=== PATIENT | female | born 2000 | race Caucasian/White ===

== ENCOUNTER 2025-06-06 05:28 | Inpatient (IN) ==
[2025-06-06] MEDS ORDERED: LIDOCAINE 1% LOCAL 20 ML VIAL INFIL PRN (05:45)
[2025-06-06] MEDS ORDERED: OXYTOCIN 30 UNITS/NSS 30 UNITS/500 ML BAG IV PRN (05:45)
--- NOTE | 2025-06-06 05:48 | History & Physical Report ---
Date of Service June 06, 2025 Assessment & Plan (1) Supervision of normal first : Plan: Admit to L&D for labor. EFM/toco. Labs. IV. OK for epidural if she desires. History of Present Illness Chief Complaint: contractions Primary Care Provider: YASMEEN Camp 25yo @ 40 04/25, came to L&D with reg ctx. Gush of fluid on the way in the door. Allergies Allergy/AdvReac Type Severity Reaction Status Date / Time No Known Allergies Allergy Verified 06/05/25 14:13 Home Medications Medication Instructions Recorded Confirmed Type 21-iron fu-folic acid PO 10/27/24 06/05/25 History [ Complete] Patient History Medical History Varicella vaccination Scoliosis Ovarian cyst Depression Surgical History [place] teeth removed Family History Grandfather (Paternal) Breast cancer Diabetes Grandmother (Maternal) Hypothyroidism Mother No problems noted. Father No problems noted. 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: No marital status: Single marital status details: amanda Cartagena (25) [phone] Current Living Situation: Significant Other Current Living Situation Comment: lives with spouse, dog, cats-fob changing litter current occupational status: employed 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 Feels Safe at Home: Yes Childhood Exposure to Second-Hand Smoke: Yes Diet: regular caffeine: Yes during the past year weight has: remained stable Dental Care, Regularly: Yes Physical Activity Frequency: Daily Seatbelt Use: always Sunscreen Use: Yes Assistive Devices: Contacts and Glasses Review of Systems All systems reviewed & are unremarkable except as noted in HPI & below Physical Exam Physical Exam: FHT Cat 1 [place] Q 2-4 SVE 4/100/-2 Constitutional: WD/WN, vitals as above Respiratory: normal respiratory effort, lungs clear to auscultation no respiratory distress Cardiovascular: Rate/Rhythm: regular rate and regular rhythm Gastrointestinal (Abdomen): Inspection/Auscultation: abdomen normal to inspection Percussion/Palpation: abdomen soft; abdomen nontender Gravid. No s/s chorio or abruption. Skin: no rashes, warm and dry Psychiatric: A+Ox3, euthymic affect Results & Data Vital Signs (Past 12 Hours) Vital Signs Pulse BP 06/06/25 05:33 86 136/82 Coding Level of Care Code None Diagnoses Supervision of normal first Z34.00
[2025-06-06 06:11] LABS: Hematocrit (blood only) 38.1 % (37.0-47.0); Hemoglobin 13.3 g/dl (12.0-16.0); Mean Corpuscular Hemoglobin 30.0 pg (25.0-34.0); Mean Corpuscular Volume 85.8 fL (80.0-100.0); Platelet Count 213 K/uL (130-400); RDW Standard Deviation 41.2 fL (36.4-46.3); Red Blood Count 4.44 M/uL (4.20-5.40); White Blood Count 9.99 K/ul (4.8-10.8)
[2025-06-06] MEDS: LACTATED RINGER'S 1,000 ML IV PRN (06:15)
--- NOTE | 2025-06-06 06:27 | Anesthesiology Consultation ---
Date of Service June 06, 2025 Assessment & Plan (1) Encounter for pre-operative examination: Chart Review Chart Review: Acceptable Risk for Labor Epidural History Height/Weight Height: 5 ft 5 in Weight: 6.35 kg Allergies Allergy/AdvReac Type Severity Reaction Status Date / Time No Known Allergies Allergy Verified 06/05/25 14:13 Medications Home Medications Medication Instructions Recorded Confirmed Last Taken 21-iron fu-folic acid PO 10/27/24 06/05/25 Unknown [ Complete] Past Medical History Medical History Varicella vaccination Scoliosis Ovarian cyst Depression Past Family History Family History Grandfather (Paternal) Breast cancer Diabetes Grandmother (Maternal) Hypothyroidism Mother No problems noted. Father , MVA No problems noted. Denies family history of Ovarian cancer Prostate cancer Myocardial infarction Colorectal cancer Past Surgical History Surgical History [place] teeth removed Social History Smoking Status: Never smoker Do You Dip or Chew Tobacco: No Hx Alcohol Use: No Hx Substance Use: No Physical Exam Vital Signs Last Vital Signs Pulse 86 06/06/25 05:33 Resp 18 06/06/25 05:43 BP 136/82 06/06/25 05:33 Testing Laboratory Results 06/06/25 05:53
[2025-06-06] MEDS: LIDOCAINE 2%/EPINEPHRINE 1:200,000 20 ML PF EPI STA (06:48)
[2025-06-06] MEDS: BUPIVACAINE 0.25% PF 30 ML VIAL EPI STA (06:48)
[2025-06-06] MEDS: fentANYL 2 MCG/ML BUPIVacaine 0.125%-NSS 100ML BAG EPI PRN (06:48)
[2025-06-06] MEDS ORDERED: ONDANSETRON INJ 2 MG/ML 2 ML VIAL IV PRN ×2 (06:50→15:46)
[2025-06-06] MEDS ORDERED: NALOXONE HCL 1 MG in SODIUM CHLORIDE 0.9% 1,000 ML IV PRN ×2 (06:50→15:46)
[2025-06-06] MEDS ORDERED: NALOXONE HCL 0.4 MG/1 ML VIAL/CARP IV PRN ×2 (06:50→15:46)
[2025-06-06] MEDS ORDERED: ROPIVACAINE 0.5% PF 5 MG/ML 20 ML VIAL EPI PRN (06:50)
[2025-06-06] MEDS ORDERED: SODIUM CHLORIDE 0.9% PF INJ 10 ML VIAL EPI PRN (06:50)
[2025-06-06] MEDS ORDERED: LIDOCAINE 2% MPF LOCAL 5 ML VIAL EPI PRN (06:50)
[2025-06-06] MEDS ORDERED: BUPIVACAINE 0.25% PF 30 ML VIAL EPI PRN (06:50)
[2025-06-06] MEDS: SODIUM CHLORIDE 0.9% PF INJ 10 ML VIAL EPI STA (07:33)
--- NOTE | 2025-06-06 11:33 | Labor Progress Brief Note ---
Date of Service June 06, 2025 Subjective comfortable, started pushing at +1 and deep variables with pushing in a late presentation Assessment & Plan (1) Normal labor: Plan attempted some pushing and baby did not tolerate well. recovers nicely good variability and spon accels. Will attempt laboring down to see if can get a little lower without maternal effort. If start pushing again and does not tolerate, will need to proceed with c/s. Fetus has recovered and reasssuring. Admission and Anticipated Discharge Date Admission Date: June 06, 2025 Physical Exam Physical Exam: cx--c/c/+1 toco--q2min efm--150s with mod variablity, accels present, late in association variable decels Results & Data Vital Signs (Past 12 Hours) Vital Signs Temp Pulse Resp BP Pulse Ox 06/06/25 11:28 100 06/06/25 11:28 98 H 06/06/25 11:23 98 06/06/25 11:23 130 H 06/06/25 11:23 69 L 06/06/25 11:23 100 H 06/06/25 11:18 100 06/06/25 11:18 102 H 06/06/25 11:15 93 06/06/25 11:15 117 H 06/06/25 11:13 97 06/06/25 11:13 102 H 06/06/25 11:12 103 H 06/06/25 11:12 127/79 06/06/25 11:09 91 06/06/25 11:09 86 06/06/25 11:08 100 06/06/25 11:08 67 06/06/25 11:03 100 06/06/25 11:03 73 06/06/25 11:01 92 06/06/25 11:01 81 06/06/25 10:58 98 06/06/25 10:58 72 06/06/25 10:56 18 06/06/25 10:56 37.3 C 18 06/06/25 10:56 62 06/06/25 10:56 106/65 06/06/25 10:53 100 06/06/25 10:53 67 06/06/25 10:52 20 06/06/25 10:52 37.3 C 20 06/06/25 10:48 100 06/06/25 10:48 67 06/06/25 10:43 100 06/06/25 10:43 60 06/06/25 10:43 105/58 L 06/06/25 10:38 100 06/06/25 10:38 72 06/06/25 10:33 100 06/06/25 10:33 61 06/06/25 10:28 100 06/06/25 10:28 58 L 06/06/25 10:28 67 06/06/25 10:28 105/56 L 06/06/25 10:23 100 06/06/25 10:23 63 06/06/25 10:18 97 06/06/25 10:18 88 06/06/25 10:17 93 06/06/25 10:17 78 06/06/25 10:13 100 06/06/25 10:13 63 06/06/25 10:12 66 06/06/25 10:12 103/56 L 06/06/25 10:08 100 06/06/25 10:08 74 06/06/25 10:06 90 06/06/25 10:06 71 06/06/25 10:03 100 06/06/25 10:03 69 06/06/25 10:01 68 06/06/25 10:01 116/60 06/06/25 09:58 100 06/06/25 09:58 75 06/06/25 09:53 94 06/06/25 09:53 83 06/06/25 09:53 90 06/06/25 09:53 83 06/06/25 09:48 100 06/06/25 09:48 81 06/06/25 09:45 87 L 06/06/25 09:45 78 06/06/25 09:43 100 06/06/25 09:43 78 06/06/25 09:38 98 06/06/25 09:38 78 06/06/25 09:33 98 06/06/25 09:33 73 06/06/25 09:30 93 06/06/25 09:30 74 06/06/25 09:28 100 06/06/25 09:28 71 06/06/25 09:28 110/57 L 06/06/25 09:23 99 06/06/25 09:23 79 06/06/25 09:21 93 06/06/25 09:21 88 06/06/25 09:18 96 06/06/25 09:18 93 H 06/06/25 09:13 100 06/06/25 09:13 93 H 06/06/25 09:09 88 L 06/06/25 09:09 85 06/06/25 09:08 100 06/06/25 09:08 84 06/06/25 09:03 100 06/06/25 09:03 104 H 06/06/25 08:58 100 06/06/25 08:58 72 06/06/25 08:57 70 06/06/25 08:57 112/65 06/06/25 08:53 100 06/06/25 08:53 69 06/06/25 08:48 100 06/06/25 08:48 80 06/06/25 08:43 100 06/06/25 08:43 75 06/06/25 08:42 65 06/06/25 08:42 123/69 06/06/25 08:38 100 06/06/25 08:38 63 06/06/25 08:33 100 06/06/25 08:33 62 06/06/25 08:28 100 06/06/25 08:28 66 06/06/25 08:23 100 06/06/25 08:23 74 06/06/25 08:18 97 06/06/25 08:18 90 06/06/25 08:13 100 06/06/25 08:13 71 06/06/25 08:13 69 06/06/25 08:13 149/58 H 06/06/25 08:08 99 06/06/25 08:08 73 06/06/25 08:07 83 06/06/25 08:07 113/92 06/06/25 08:05 92 06/06/25 08:05 89 06/06/25 08:03 97 06/06/25 08:03 69 06/06/25 07:59 90 06/06/25 07:59 81 06/06/25 07:58 100 06/06/25 07:58 75 06/06/25 07:53 100 06/06/25 07:53 61 06/06/25 07:48 100 06/06/25 07:48 58 L 06/06/25 07:44 18 06/06/25 07:44 18 06/06/25 07:44 62 06/06/25 07:44 112/62 06/06/25 07:43 100 06/06/25 07:43 69 06/06/25 07:39 91 06/06/25 07:39 88 06/06/25 07:38 100 06/06/25 07:38 88 06/06/25 07:33 100 06/06/25 07:33 71 06/06/25 07:31 92 06/06/25 07:31 75 06/06/25 07:28 100 06/06/25 07:28 60 06/06/25 07:26 18 06/06/25 07:26 18 06/06/25 07:26 66 06/06/25 07:26 133/80 06/06/25 07:24 94 06/06/25 07:24 69 06/06/25 07:24 120/84 06/06/25 07:23 98 06/06/25 07:23 72 06/06/25 07:22 62 06/06/25 07:22 137/84 06/06/25 07:20 56 L 06/06/25 07:20 126/61 06/06/25 07:18 100 06/06/25 07:18 60 06/06/25 07:18 117/61 06/06/25 07:17 71 06/06/25 07:17 125/62 06/06/25 07:17 93 06/06/25 07:17 79 06/06/25 07:13 100 06/06/25 07:13 69 06/06/25 07:13 61 06/06/25 07:13 121/75 06/06/25 07:10 72 06/06/25 07:10 107/66 06/06/25 07:08 100 06/06/25 07:08 64 06/06/25 07:08 110/64 06/06/25 07:07 69 06/06/25 07:07 122/71 06/06/25 07:04 18 06/06/25 07:04 18 06/06/25 07:04 82 06/06/25 07:04 104/69 06/06/25 07:03 99 06/06/25 07:03 81 06/06/25 07:02 74 06/06/25 07:02 120/75 06/06/25 07:00 18 06/06/25 07:00 18 06/06/25 07:00 73 06/06/25 07:00 113/61 06/06/25 06:58 99 06/06/25 06:58 79 06/06/25 06:58 66 06/06/25 06:58 115/56 L 06/06/25 06:55 18 06/06/25 06:55 18 06/06/25 06:54 92 H 06/06/25 06:54 112/72 06/06/25 06:53 100 06/06/25 06:53 75 06/06/25 06:52 76 06/06/25 06:52 115/65 06/06/25 06:50 18 06/06/25 06:50 18 06/06/25 06:50 68 06/06/25 06:50 120/69 06/06/25 06:48 99 06/06/25 06:48 76 06/06/25 06:48 65 06/06/25 06:48 123/65 06/06/25 06:47 18 06/06/25 06:47 36.8 C 18 06/06/25 06:45 67 06/06/25 06:45 122/57 L 06/06/25 06:43 98 06/06/25 06:43 70 06/06/25 06:38 99 06/06/25 06:38 84 06/06/25 06:33 100 06/06/25 06:33 87 06/06/25 05:43 18 06/06/25 05:33 86 136/82 Coding Level of Care Code None Diagnoses Normal labor O80; Z37.9
[2025-06-06] MEDS ORDERED: ACETAMINOPHEN SUSP 160 MG/5 ML BTL PO STA (11:44)
[2025-06-06] MEDS: ACETAMINOPHEN 500 MG TAB ONE (11:54)
[2025-06-06] MEDS ORDERED: OXYTOCIN 10 UNITS/ML VIAL ONE ×3 (14:58→15:59)
[2025-06-06] MEDS ORDERED: DEXAMETHASONE SOD INJ 4 MG/ML VIAL ONE (14:58)
[2025-06-06] MEDS ORDERED: ONDANSETRON INJ 2 MG/ML 2 ML VIAL ONE (14:58)
[2025-06-06] MEDS ORDERED: METOCLOPRAMIDE HCL INJ 5 MG/ML 2 ML VIAL ONE (14:58)
[2025-06-06] MEDS ORDERED: MoRPHine SULFATE PF 1 MG/ML 10 ML AMP/VIAL ONE (15:01)
--- NOTE | 2025-06-06 15:06 | Communication Note ---
Date of Service: June 06, 2025 Patient has been pushing with excellent effort. Has been pushing in multiple positions. Fht have been tachy in the 170s with deepening variables with slower return to baseline. Has manintained good variability, even marked at times. Have finally been able to determine rop. Discussed lack of descent over the last hour. Discussed the possiblitiy of attempting a vacuum--concern about caput, is +2 barely. Willing to try to get lower vs. progressing with c/s. The risks of surgery were discussed with the patient including the risks of anesthesia, bleeding requiring transfusion, infection, poor wound healing, urinary retention, damage to surrounding structures including bowels, bladder, vessels, nerves and ureters that may require further surgery, hospitalization or intervention. The other risks of any surgery were discussed including heart attack, blood clots, stroke or , injury to baby. Has a very good working epidural. After discussion, they have decided to move forward with c/s. Consent reviewed an signed.
[2025-06-06] MEDS ORDERED: AZITHROMYCIN 500 MG/255 ML BAG IV SCH (15:15)
[2025-06-06] MEDS ORDERED: ACETAMINOPHEN 500 MG TAB PO SCH (15:15)
[2025-06-06] MEDS ORDERED: SODIUM CHLORIDE 0.9% PF INJ 10 ML VIAL ONE (15:35)
[2025-06-06] MEDS ORDERED: LACTATED RINGER'S 500 ML IV PRN (15:46)
[2025-06-06] MEDS ORDERED: PROMETHAZINE 6.25 MG/50.25 ML BAG IV PRN (15:46)
[2025-06-06] MEDS ORDERED: MoRPHine SULFATE 2 MG/ML CARP IV PRN (15:46)
[2025-06-06] MEDS ORDERED: NALOXONE HCL 0.08 MG in SYRINGE 1.8 ML IV PRN (15:46)
[2025-06-06] MEDS ORDERED: diphenhydrAMINE 50 MG/ML VIAL IV PRN (15:46)
[2025-06-06] MEDS ORDERED: NALBUPHINE HCL INJ 10 MG/ML AMP IV PRN (15:46)
[2025-06-06] MEDS ORDERED: PHENYLEPHRINE 100MCG/ML 5ML SYR ONE (16:00)
[2025-06-06] MEDS ORDERED: ePHEDrine sulfate 50 MG/5 ML SYR ONE (16:00)
[2025-06-06] MEDS ORDERED: DC INTRASPINAL MORPHINE SCH (16:00)
[2025-06-06] MEDS ORDERED: NO NARCOTICS OR SEDATIVES SCH (16:00)
[2025-06-06] MEDS ORDERED: LACTATED RINGER'S 1,000 ML IV SCH (16:15)
--- NOTE | 2025-06-06 16:17 | Operative Report ---
PG Post Operative Report Pre & Post Diagnosis Operation Date: 06/06/25 15:10 <No data on this case meets the specified criteria> preop--iup at 40 weeks FTD intolerance to pushing OP Postop dx--same I identified the patient and participated in the time-out.: Yes Procedure Operation Date: 06/06/25 15:10 Actual Procedures p primary low transverse Section in for delivery of live female child at 1537(Not Applicable) - Radha Crockett MD, FACOG Surgeon Radha Crockett MD, FACOG Millinery Salesperson Betsy Pearl RN Estimated Blood Loss 362 Findings Consistent with Post-Op Diagnosis viable female infant in OP presentation, wedged into pelvis with large caput. Uterus, tubes and ovaries appeared normal bilaterally. The left ovary appeared slightly enlarged, but there were no obvious cysts or masses noted. Fluids ivf--1000cc uop--100cc Specimens none Drains armas Anesthesia Type Labor Epidural Complications none Disposition Accompanied Patient To Recovery: No Disposition: L&D Indications 25 yo wf who presented in spontaneous labor and progressed spontaneously. She pushed with good effort for about two hours. The fetus was tolerated the pushing well in the beginning but eventually became tachycardic with deeper variables with pushing that then had delayed return to a tachycardic baseline and had some concern about late component. Variability remained excellent, even at times marked. Determied baby was OP. Consideration of trial of vacuum but they preferred to proceed with a primary c/s. Description of Procedure The patient was taken to the operating room where she was identified verbally and by bracelet. She was placed on the operating table where her epidural was dosed by anesthesia. She was then placed in the supine position with a leftward tilt. A Armas catheter was placed sterilely. the patient was prepped and draped in a normal standard fashion. the anesthetic was tested and found to be adequate. A time-out was held, identifying correct patient, procedure, positioning and preoperative antibiotics. There were no concerns. A Pfannenstiel skin incision was made with a knife and taken down to the underlying layer of fascia with the knife and Bovie electrocautery. Bleeding was attended to with the Bovie. The fascia was incised in the midline with the knife and taken out laterally with scissors. The superior edge of the fascial incision was grasped, elevated and the underlying layer of rectus muscle was taken off bluntly and with scissors. In a similar fashion, the inferior edge of the fascial incision was grasped, elevated and the underlying layer of rectus muscle was taken off bluntly and with scissors. The muscles were bluntly in the midline. The peritoneum was entered bluntly. The incision was then stretched. The bladder blade was placed. The vesicouterine peritoneum was identified, entered with scissors and taken out laterally with scissors. The bladder flap was created digitally A hysterotomy incision was scored with a knife and the incision was stretched superiorly and inferiorly with the meat press operator's fingers. Fluid was clear. Baby was looking up through the incision in rop presentation. The operators hand was placed into the incision and the head was delivered atraumatically. No nuchal cord. The nose and mouth were bulb suctioned. the rest of the infant was then delivered without difficulty. The nose and mouth were again bulb suctioned. The cord was clamped and cut and the infant was then handed off to the awaiting assistant engineer for drying and attention. Cord blood and segment were obtained. Apgars 7/9. The placenta was Manually extracted. The uterus was exteriorized and cleared of all clot and debris with moistened laparotomy sponges. The hysterotomy incision was repaired in two layers, the first in a running locked layer, the second in an imbricating layer. Hemostasis was noted to be good. Posterior cul-de-sac was irrigated and cleared of all clot and debris. The hysterotomy incision was again inspected and found to be hemostatic. the uterus was reinteriorized. Hysterotomy incision was again inspected and found to be hemostatic. The fascia was then reapproximated with 0 Vicryl starting at the edges and meeting in the midline. The subcuticular tissues were copiously irrigated and bleeding was attended to with cautery. The skin was then closed with 4-0 Vicryl in a subcuticular fashion. All sponge , lap and needle counts were correct x2. the patient tolerated the procedure well and was taken to the recovery room in stable condition. I attest to the content of the Intraoperative Record and any orders documented therein. Any exceptions are noted below.
[2025-06-06] MEDS ORDERED: SENNA 8.6 MG TAB PO PRN (16:19)
[2025-06-06] MEDS ORDERED: HYDROCORTISONE ACETATE 25 MG SUPP PR PRN (16:19)
[2025-06-06] MEDS ORDERED: BENZOCAINE 20% SPRY 85 APPLN/85 GM CAN EXT PRN (16:19)
[2025-06-06] MEDS ORDERED: CALCIUM CARBONATE 500 MG CHEWABLE TAB PO PRN (16:19)
[2025-06-06] MEDS ORDERED: MAGNESIUM HYDROXIDE SUSP 30 ML UDC PO PRN (16:19)
[2025-06-06] MEDS: KETOROLAC 30 MG/ML VIAL IV SCH (17:03)
[2025-06-06] MEDS: CITRIC ACID/SODIUM CITRATE 15 ML UDC PO SCH (17:23)
[2025-06-06] MEDS: MoRPHine SULFATE PF 1 MG/ML 10 ML AMP/VIAL EPI ONE (17:23)
[2025-06-06] MEDS: SIMETHICONE 80 MG CHEW PO SCH (17:24)
[2025-06-06] MEDS: DIPHTHER/TETAN/PERTUS Vaccine (Tdap, Adol/Adult) 0.5mL IM ONE (17:24)
[2025-06-06] MEDS: LACTATED RINGER'S 1,000 ML IV SCH (17:27)
[2025-06-06] MEDS: SODIUM CHLORIDE 0.9% 1,000 ML IV SCH (17:27)
[2025-06-06] MEDS: CITRIC ACID/SODIUM CITRATE 15 ML UDC ONE (17:28)
--- NOTE | 2025-06-06 17:36 | Anesthesia Procedure Note ---
Date of Service June 06, 2025 Anesthesia Post Epidural Note Vital Signs Vital Signs: Temp Pulse Resp BP Pulse Ox 36.9 C 86 20 121/59 L 97 06/06/25 17:15 06/06/25 17:30 06/06/25 17:15 06/06/25 17:26 06/06/25 17:30 Pain Intensity Bilateral Abdomen: Pain Intensity: 3 Notes Mental Status: alert / awake / arousable and participated in evaluation Nausea / Vomiting: adequately controlled Pain: adequately controlled Airway Patency, RR, SpO2: stable & adequate BP & HR: stable & adequate Hydration State: stable & adequate Neuraxial Anesthesia: was administered and sensory block is resolving Anesthetic Complications: no major complications apparent Epidural: Removed without complications and With tip intact
--- NOTE | 2025-06-06 17:36 | Anesthesiology Progress Note ---
Date of Service June 06, 2025 Anesthesia Post Procedure Vital Signs Vital Signs: Temp Pulse Resp BP Pulse Ox 06/06/25 17:30 97 06/06/25 17:30 86 06/06/25 17:26 105 H 06/06/25 17:26 121/59 L 06/06/25 17:21 82 L 06/06/25 17:21 75 06/06/25 17:17 100 06/06/25 17:17 73 06/06/25 17:16 93 H 06/06/25 17:16 113/60 06/06/25 17:15 36.9 C 20 06/06/25 17:12 99 06/06/25 17:12 82 06/06/25 17:07 99 06/06/25 17:07 94 H 06/06/25 17:06 95 H 06/06/25 17:06 112/59 L 06/06/25 17:05 20 06/06/25 17:02 99 06/06/25 17:02 113 H 06/06/25 16:57 98 06/06/25 16:57 82 06/06/25 16:56 90 06/06/25 16:56 124/56 L 06/06/25 16:56 90 06/06/25 16:56 90 06/06/25 16:55 16 06/06/25 16:52 99 06/06/25 16:52 70 06/06/25 16:47 99 06/06/25 16:47 79 06/06/25 16:45 16 06/06/25 16:42 96 06/06/25 16:42 78 06/06/25 16:40 83 06/06/25 16:40 133/75 06/06/25 16:38 94 06/06/25 16:38 80 06/06/25 16:37 97 06/06/25 16:37 80 06/06/25 16:35 20 06/06/25 16:33 93 06/06/25 16:33 86 06/06/25 16:32 91 06/06/25 16:32 94 H 06/06/25 16:30 74 06/06/25 16:30 86/50 L 06/06/25 16:29 77 06/06/25 16:29 92/49 L 06/06/25 16:28 90 06/06/25 16:28 96 H 06/06/25 16:27 98 06/06/25 16:27 94 H 06/06/25 16:25 20 06/06/25 16:22 97 06/06/25 16:22 89 06/06/25 16:19 93 06/06/25 16:19 84 06/06/25 16:17 92 06/06/25 16:17 89 06/06/25 16:15 37 C 20 06/06/25 16:15 83 06/06/25 16:15 102/55 L 06/06/25 16:13 94 06/06/25 16:13 87 06/06/25 16:12 95 06/06/25 16:12 94 H 06/06/25 15:19 66 L 06/06/25 15:19 111 H 06/06/25 15:15 90 06/06/25 15:15 79 06/06/25 15:14 93 06/06/25 15:14 79 06/06/25 15:09 99 06/06/25 15:09 88 06/06/25 15:07 92 06/06/25 15:07 102 H 06/06/25 15:06 20 06/06/25 15:06 37.1 C 20 06/06/25 15:06 92 H 06/06/25 15:06 118/69 06/06/25 15:04 82 L 06/06/25 15:04 82 06/06/25 15:00 90 06/06/25 15:00 81 06/06/25 14:59 99 06/06/25 14:59 87 06/06/25 14:54 94 06/06/25 14:54 103 H 06/06/25 14:49 99 06/06/25 14:49 92 H 06/06/25 14:44 98 06/06/25 14:44 148 H 06/06/25 14:39 99 06/06/25 14:39 92 H 06/06/25 14:38 94 06/06/25 14:38 107 H 06/06/25 14:34 99 06/06/25 14:34 112 H 06/06/25 14:33 93 06/06/25 14:33 118 H 06/06/25 14:33 22 06/06/25 14:33 22 06/06/25 14:29 85 L 06/06/25 14:29 107 H 06/06/25 14:26 90 06/06/25 14:26 114 H 06/06/25 14:24 100 06/06/25 14:24 95 H 06/06/25 14:21 85 L 06/06/25 14:21 74 06/06/25 14:19 100 06/06/25 14:19 70 06/06/25 14:15 91 06/06/25 14:15 73 06/06/25 14:14 96 06/06/25 14:14 77 06/06/25 14:09 94 06/06/25 14:09 80 06/06/25 14:08 91 06/06/25 14:08 78 06/06/25 14:05 65 06/06/25 14:05 125/59 L 06/06/25 14:04 93 06/06/25 14:04 105 H 06/06/25 14:03 93 06/06/25 14:03 93 H 06/06/25 14:00 20 06/06/25 14:00 20 06/06/25 13:59 84 L 06/06/25 13:59 75 06/06/25 13:57 94 06/06/25 13:57 87 06/06/25 13:54 93 06/06/25 13:54 96 H 06/06/25 13:51 94 06/06/25 13:51 90 06/06/25 13:51 114/57 L 06/06/25 13:49 98 06/06/25 13:49 97 H 06/06/25 13:44 75 L 06/06/25 13:44 143 H 06/06/25 13:39 97 06/06/25 13:39 97 H 06/06/25 13:39 94 06/06/25 13:39 93 H 06/06/25 13:37 103 H 06/06/25 13:37 116/70 06/06/25 13:37 20 06/06/25 13:37 20 06/06/25 13:34 89 L 06/06/25 13:34 102 H 06/06/25 13:32 94 06/06/25 13:32 100 H 06/06/25 13:29 77 L 06/06/25 13:29 135 H 06/06/25 13:26 83 L 06/06/25 13:26 97 H 06/06/25 13:24 89 L 06/06/25 13:24 82 06/06/25 13:21 92 06/06/25 13:21 84 06/06/25 13:19 97 06/06/25 13:19 84 06/06/25 13:15 90 06/06/25 13:15 64 06/06/25 13:14 99 06/06/25 13:14 67 06/06/25 13:09 94 06/06/25 13:09 75 06/06/25 13:07 113 H 06/06/25 13:07 128/75 06/06/25 13:06 86 L 06/06/25 13:06 80 06/06/25 13:04 100 06/06/25 13:04 70 06/06/25 12:59 96 06/06/25 12:59 75 06/06/25 12:54 77 L 06/06/25 12:54 93 H 06/06/25 12:50 86 L 06/06/25 12:50 95 H 06/06/25 12:49 97 06/06/25 12:49 100 H 06/06/25 12:47 20 06/06/25 12:47 37.4 C 20 06/06/25 12:44 100 06/06/25 12:44 77 06/06/25 12:41 93 06/06/25 12:41 82 06/06/25 12:39 99 06/06/25 12:39 78 06/06/25 12:36 92 06/06/25 12:36 99 H 06/06/25 12:34 100 06/06/25 12:34 76 06/06/25 12:29 94 06/06/25 12:29 64 06/06/25 12:28 95 06/06/25 12:28 65 06/06/25 12:24 90 06/06/25 12:24 90 06/06/25 12:23 100 06/06/25 12:23 87 06/06/25 12:18 100 06/06/25 12:18 66 06/06/25 12:18 92 06/06/25 12:18 74 06/06/25 12:13 97 06/06/25 12:13 73 06/06/25 12:12 89 L 06/06/25 12:12 74 06/06/25 12:08 86 L 06/06/25 12:08 79 06/06/25 12:06 91 06/06/25 12:06 92 H 06/06/25 12:06 129/78 06/06/25 12:03 100 06/06/25 12:03 73 06/06/25 12:01 92 06/06/25 12:01 79 06/06/25 11:58 85 L 06/06/25 11:58 82 06/06/25 11:54 91 06/06/25 11:54 86 06/06/25 11:53 99 06/06/25 11:53 86 06/06/25 11:48 100 06/06/25 11:48 74 06/06/25 11:46 91 06/06/25 11:46 83 06/06/25 11:43 98 06/06/25 11:43 78 06/06/25 11:41 93 06/06/25 11:41 74 06/06/25 11:38 98 06/06/25 11:38 91 H 06/06/25 11:35 91 06/06/25 11:35 85 06/06/25 11:35 65 06/06/25 11:35 101/63 06/06/25 11:33 99 06/06/25 11:33 83 06/06/25 11:28 100 06/06/25 11:28 98 H 06/06/25 11:23 98 06/06/25 11:23 130 H 06/06/25 11:23 69 L 06/06/25 11:23 100 H 06/06/25 11:18 100 06/06/25 11:18 102 H 06/06/25 11:15 93 06/06/25 11:15 117 H 06/06/25 11:13 97 06/06/25 11:13 102 H 06/06/25 11:12 103 H 06/06/25 11:12 127/79 06/06/25 11:09 91 06/06/25 11:09 86 06/06/25 11:08 100 06/06/25 11:08 67 06/06/25 11:03 100 06/06/25 11:03 73 06/06/25 11:01 92 06/06/25 11:01 81 06/06/25 10:58 98 06/06/25 10:58 72 06/06/25 10:56 18 06/06/25 10:56 37.3 C 18 06/06/25 10:56 62 06/06/25 10:56 106/65 06/06/25 10:53 100 06/06/25 10:53 67 06/06/25 10:52 20 06/06/25 10:52 37.3 C 20 06/06/25 10:48 100 06/06/25 10:48 67 06/06/25 10:43 100 06/06/25 10:43 60 06/06/25 10:43 105/58 L 06/06/25 10:38 100 06/06/25 10:38 72 06/06/25 10:33 100 06/06/25 10:33 61 06/06/25 10:28 100 06/06/25 10:28 58 L 06/06/25 10:28 67 06/06/25 10:28 105/56 L 06/06/25 10:23 100 06/06/25 10:23 63 06/06/25 10:18 97 06/06/25 10:18 88 06/06/25 10:17 93 06/06/25 10:17 78 06/06/25 10:13 100 06/06/25 10:13 63 06/06/25 10:12 66 06/06/25 10:12 103/56 L 06/06/25 10:08 100 06/06/25 10:08 74 06/06/25 10:06 90 06/06/25 10:06 71 06/06/25 10:03 100 06/06/25 10:03 69 06/06/25 10:01 68 06/06/25 10:01 116/60 06/06/25 09:58 100 06/06/25 09:58 75 06/06/25 09:53 94 06/06/25 09:53 83 06/06/25 09:53 90 06/06/25 09:53 83 06/06/25 09:48 100 06/06/25 09:48 81 06/06/25 09:45 87 L 06/06/25 09:45 78 06/06/25 09:43 100 06/06/25 09:43 78 06/06/25 09:38 98 06/06/25 09:38 78 06/06/25 09:33 98 06/06/25 09:33 73 06/06/25 09:30 93 06/06/25 09:30 74 06/06/25 09:28 100 06/06/25 09:28 71 06/06/25 09:28 110/57 L 06/06/25 09:23 99 06/06/25 09:23 79 06/06/25 09:21 93 06/06/25 09:21 88 06/06/25 09:18 96 06/06/25 09:18 93 H 06/06/25 09:13 100 06/06/25 09:13 93 H 06/06/25 09:09 88 L 06/06/25 09:09 85 06/06/25 09:08 100 06/06/25 09:08 84 06/06/25 09:03 100 06/06/25 09:03 104 H 06/06/25 08:58 100 06/06/25 08:58 72 06/06/25 08:57 70 06/06/25 08:57 112/65 06/06/25 08:53 100 06/06/25 08:53 69 06/06/25 08:48 100 06/06/25 08:48 80 06/06/25 08:43 100 06/06/25 08:43 75 06/06/25 08:42 65 06/06/25 08:42 123/69 06/06/25 08:38 100 06/06/25 08:38 63 06/06/25 08:33 100 06/06/25 08:33 62 06/06/25 08:28 100 06/06/25 08:28 66 06/06/25 08:23 100 06/06/25 08:23 74 06/06/25 08:18 97 06/06/25 08:18 90 06/06/25 08:13 100 06/06/25 08:13 71 06/06/25 08:13 69 06/06/25 08:13 149/58 H 06/06/25 08:08 99 06/06/25 08:08 73 06/06/25 08:07 83 06/06/25 08:07 113/92 06/06/25 08:05 92 06/06/25 08:05 89 06/06/25 08:03 97 06/06/25 08:03 69 06/06/25 07:59 90 06/06/25 07:59 81 06/06/25 07:58 100 06/06/25 07:58 75 06/06/25 07:53 100 06/06/25 07:53 61 06/06/25 07:48 100 06/06/25 07:48 58 L 06/06/25 07:44 18 06/06/25 07:44 18 06/06/25 07:44 62 06/06/25 07:44 112/62 06/06/25 07:43 100 06/06/25 07:43 69 06/06/25 07:39 91 06/06/25 07:39 88 06/06/25 07:38 100 06/06/25 07:38 88 06/06/25 07:33 100 06/06/25 07:33 71 06/06/25 07:31 92 06/06/25 07:31 75 06/06/25 07:28 100 06/06/25 07:28 60 06/06/25 07:26 18 06/06/25 07:26 18 06/06/25 07:26 66 06/06/25 07:26 133/80 06/06/25 07:24 94 06/06/25 07:24 69 06/06/25 07:24 120/84 06/06/25 07:23 98 06/06/25 07:23 72 06/06/25 07:22 62 06/06/25 07:22 137/84 06/06/25 07:20 56 L 06/06/25 07:20 126/61 06/06/25 07:18 100 06/06/25 07:18 60 06/06/25 07:18 117/61 06/06/25 07:17 71 06/06/25 07:17 125/62 06/06/25 07:17 93 06/06/25 07:17 79 06/06/25 07:13 100 06/06/25 07:13 69 06/06/25 07:13 61 06/06/25 07:13 121/75 06/06/25 07:10 72 06/06/25 07:10 107/66 06/06/25 07:08 100 06/06/25 07:08 64 06/06/25 07:08 110/64 06/06/25 07:07 69 06/06/25 07:07 122/71 06/06/25 07:04 18 06/06/25 07:04 18 06/06/25 07:04 82 06/06/25 07:04 104/69 06/06/25 07:03 99 06/06/25 07:03 81 06/06/25 07:02 74 06/06/25 07:02 120/75 06/06/25 07:00 18 06/06/25 07:00 18 06/06/25 07:00 73 06/06/25 07:00 113/61 06/06/25 06:58 99 06/06/25 06:58 79 06/06/25 06:58 66 06/06/25 06:58 115/56 L 06/06/25 06:55 18 06/06/25 06:55 18 06/06/25 06:54 92 H 06/06/25 06:54 112/72 06/06/25 06:53 100 06/06/25 06:53 75 06/06/25 06:52 76 06/06/25 06:52 115/65 06/06/25 06:50 18 06/06/25 06:50 18 06/06/25 06:50 68 06/06/25 06:50 120/69 06/06/25 06:48 99 06/06/25 06:48 76 06/06/25 06:48 65 06/06/25 06:48 123/65 06/06/25 06:47 18 06/06/25 06:47 36.8 C 18 06/06/25 06:45 67 06/06/25 06:45 122/57 L 06/06/25 06:43 98 06/06/25 06:43 70 06/06/25 06:38 99 06/06/25 06:38 84 06/06/25 06:33 100 06/06/25 06:33 87 06/06/25 05:43 18 06/06/25 05:33 86 136/82 Pain Intensity Bilateral Abdomen: Pain Intensity: 3 Transfer of Care Handoff Completed per policy Notes Mental Status: alert / awake / arousable Patient Amnestic to Procedure: Yes Nausea / Vomiting: adequately controlled Pain: adequately controlled Airway Patency, RR, SpO2: stable & adequate BP & HR: stable & adequate Hydration State: stable & adequate Anesthetic Complications: no major complications apparent
[2025-06-06] MEDS: DOCUSATE SODIUM 100 MG CAP PO SCH (21:00)
[2025-06-06] MEDS ORDERED: Nursing to Pharmacy Communication SCH (22:30)
[2025-06-06] MEDS: ACETAMINOPHEN 325 MG TAB PO SCH (23:30)
[2025-06-06] MEDS: OXYTOCIN 20 UNITS/LR 1,002 ML IV SCH (23:45)
[2025-06-07] MEDS ORDERED: Nursing to Pharmacy Communication SCH (06:00)
[2025-06-07] MEDS: IBUPROFEN 600 MG TAB PO SCH ×2 (06:04→11:09)
[2025-06-07 07:21] LABS: Hematocrit (blood only) 31.0 % (37.0-47.0); Hemoglobin 10.6 g/dl (12.0-16.0); Immature Granulocytes # (auto) 0.05 K/uL (0.01-0.20); Immature Granulocytes % (auto) 0.4 %; Mean Corpuscular Hemoglobin 30.0 pg (25.0-34.0); Mean Corpuscular Volume 87.8 fL (80.0-100.0); Platelet Count 162 K/uL (130-400); RDW Standard Deviation 43.8 fL (36.4-46.3); Red Blood Count 3.53 M/uL (4.20-5.40); White Blood Count 12.65 K/ul (4.8-10.8)
--- NOTE | 2025-06-07 07:24 | Obstetrical Progress Note ---
Date of Service June 07, 2025 Assessment & Plan (1) delivery delivered: (2) examination following delivery: Plan Overall doing well. Incision looks good. Plan routine care. Encouraged ambulation and pain med. Day #:: 1 Subjective Ambulation: limited ambulation Voiding: no voiding problems Passing Gas:: Yes Diet Tolerance:: regular diet Lochia:: Small Feeding Type:: breast feeding Patient lost IV access last night, switching to po regimen. Did discuss that if she has issues, may need IV replaced. Pain fairly well controlled Physical Exam Constitutional WD/WN, vitals as above Respiratory normal respiratory effort, lungs clear to auscultation Cardiovascular RRR, no murmur, no edema Extremities: no calf tenderness and no edema Gastrointestinal (Abdomen) soft, appropriately tender, nd ff/appro tender at u Some old exudate on dressing outlined. Incision c/d/i Psychiatric A+Ox3, euthymic affect Results & Data Vital Signs (Past 12 Hours) Vital Signs Temp Pulse Resp BP Pulse Ox O2 Del Method 06/07/25 05:00 16 100 06/07/25 05:00 37 C 72 16 106/69 100 Room Air 06/07/25 04:00 16 98 06/07/25 03:00 16 96 06/07/25 02:00 16 98 06/07/25 01:00 16 98 06/07/25 00:00 18 98 06/06/25 23:30 37.1 C 70 16 132/81 100 Room Air 06/06/25 23:00 16 98 06/06/25 22:00 16 98 06/06/25 21:00 16 98 06/06/25 19:40 18 99 06/06/25 19:40 37.2 C 72 18 130/79 99 Room Air
[2025-06-07] MEDS: FERROUS SULFATE 325 MG TAB PO SCH (08:54)
[2025-06-07] MEDS: PRENATAL VITAMIN 1 TAB PO SCH (08:55)
[2025-06-07] MEDS ORDERED: diphenhydrAMINE 50 MG/ML VIAL IV PRN (09:47)
[2025-06-07] MEDS ORDERED: HYDROmorphone INJ 0.5 MG/0.5 ML SYR IV PRN (09:47)
[2025-06-07] MEDS ORDERED: PROMETHAZINE 12.5 MG/50.5 ML BAG IV PRN (09:47)
[2025-06-07] MEDS ORDERED: ONDANSETRON INJ 2 MG/ML 2 ML VIAL IV PRN (09:47)
[2025-06-07] MEDS ORDERED: diphenhydrAMINE Capsule 25 MG CAP PO PRN (09:47)
[2025-06-07] MEDS ORDERED: KETOROLAC 30 MG/ML VIAL IV PRN (16:12)
[2025-06-07] MEDS: IBUPROFEN 600 MG TAB PO PRN (23:00)
[2025-06-08 06:13] LABS: Hematocrit (blood only) 33.3 % (37.0-47.0); Hemoglobin 11.0 g/dl (12.0-16.0)
--- NOTE | 2025-06-08 06:21 | Obstetrical Progress Note ---
Date of Service June 08, 2025 Assessment & Plan (1) examination following delivery: Plan Hedy Cross is a 25 y/o F post-op day 2 s/p Fells well today. Vital signs stable Continue post- care Encourage ambulation and Pain controlled with ibuprofen Hgb stable Discussed home discharge today with patient. Would like to stay one more day. Plan to discharge home tomorrow, follow up with Dr Crockett in 6 weeks. Admission and Anticipated Discharge Date Admission Date: June 06, 2025 Anticipated date of discharge: 06/09/25 Supervising Physician Co-Signing Physician Notes Resident Physician Supervision Note: I interviewed and examined the patient. Discussed with Dr. Spencer and agree with findings and plan as documented in the note. Any exceptions or clarifications are listed here: Doing well today. Continue routine care. Documented By: Radha Crockett MD, FACOG Subjective Hedy Cross is a 24 y/o F post-op day 2 s/p Ambulation: ambulating normally Voiding: no voiding problems Passing Gas:: Yes Diet Tolerance:: regular diet Lochia:: Small Feeding Type:: breast feeding Current Pain Level: 4/10 - well-controlled with current pain regimen Resting comfortably this AM in NAD. Denies VELOZ, CP, SOB, N/V/D, LE pain/swelling. Review of Systems Review of Systems: All systems reviewed & are unremarkable except as noted in HPI & below Physical Exam Physical Exam: General: patient resting comfortably, NAD, non-toxic in appearance, AA&O x 4, answers questions appropriately. Skin: warm, dry, intact HEENT: NC/AT, anicteric sclera, conjunctiva without injection, moist mucus membranes. Heart: +S1/S2, regular, no m/r/g Lungs: equal air entry bilaterally, no rales/rhonchi/wheezes Abd: +BS, soft, NT/ND, uterine fundus firm at umbilicus, caesarean incision C/D/I. Ext: warm, no clubbing/cyanosis or edema, Jannie's neg. Neuro: nonfocal, patient AA&O x 4, speech intact, no facial droop, moving all extremities on command. Results & Data Vital Signs (Past 12 Hours) Vital Signs Temp Pulse Resp BP Pulse Ox O2 Del Method 07/20/25 23:30 36.6 C 70 16 110/78 98 Room Air 06/07/25 19:45 36.6 C 68 16 107/70 100 Room Air
[2025-06-08] MEDS: LACTATED RINGER'S 1,000 ML IV SCH (10:42)
[2025-06-08] MEDS ORDERED: Nursing to Pharmacy Communication SCH (10:45)
[2025-06-08] MEDS: ACETAMINOPHEN 325 MG TAB PO PRN (15:31)
[2025-06-08 21:44] VITALS: O2SAT 99
[2025-06-09 00:27] VITALS: RESP 18
--- NOTE | 2025-06-09 06:02 | Obstetrical Progress Note ---
Date of Service June 09, 2025 Assessment & Plan (1) examination following delivery: Plan: Hedy Cross is a 25 y/o F post-op day 2 s/p Fells well today. Vital signs stable Continue post- care Encourage ambulation and Pain controlled with ibuprofen Hgb stable Discharge home today, follow-up with Dr. Crockett in 6 weeks. Admission and Anticipated Discharge Date Admission Date: June 06, 2025 Anticipated date of discharge: 06/09/25 Supervising Physician Co-Signing Physician Notes Resident Physician Supervision Note: I was present with Dr. Spencer during the history and exam. I discussed the case with the resident and agree with the findings and plan as documented in the note. Any exceptions or clarifications are listed here: [None] Documented By: Radha Banegas MD, FACOG Subjective Hedy Cross is a 24 y/o F post-op day 3 s/p Today, she notes some abdominal tenderness across her upper abdomen. Has not taken pain medications. States she is eating well, denies N/V/D. Ambulation: ambulating normally Voiding: no voiding problems Passing Gas:: Yes Diet Tolerance:: regular diet Lochia:: Small Feeding Type:: breast feeding Current Pain Level: 4/10 Resting comfortably this AM in NAD. Denies VELOZ, CP, SOB, N/V/D, LE pain/swelling. Review of Systems Review of Systems: All systems reviewed & are unremarkable except as noted in HPI & below Physical Exam 2 Physical Exam: General: patient resting comfortably, NAD, non-toxic in appearance, AA&O x 4, answers questions appropriately. Skin: warm, dry, intact HEENT: NC/AT, anicteric sclera, conjunctiva without injection, moist mucus membranes. Heart: +S1/S2, regular, no m/r/g Lungs: equal air entry bilaterally, no rales/rhonchi/wheezes Abd: +BS, soft, NT/ND, uterine fundus firm at umbilicus, caesarean incision C/D/I. Ext: warm, no clubbing/cyanosis or edema, Jannie's neg. Neuro: nonfocal, patient AA&O x 4, speech intact, no facial droop, moving all extremities on command. Results & Data Vital Signs (Past 12 Hours) Vital Signs Temp Pulse Resp BP Pulse Ox O2 Del Method 06/08/25 23:30 37.0 C 86 18 116/76 99 Room Air 06/08/25 20:05 37.0 C 90 16 121/76 99 Room Air
[2025-06-09 08:24] VITALS: BP 120/78; TEMP 98.4
[2025-06-09 09:25] VITALS: PULSE 78
--- NOTE | 2025-06-10 10:53 | Discharge Summary ---
Date of Service June 10, 2025 Admission HPI Per Admitting Provider 25yo @ 40 04/25, came to L&D with reg ctx. Gush of fluid on the way in the door. Discharge Data Consultations 06/06/25 05:45 Consult Anesthesiology Stat Procedures Performed Operation Date: 06/06/25 15:10 Actual Procedures p Section in LD for delivery of live female child at 1537(Not Applicable) - Radha Crockett MD, [facility] Course (1) delivery delivered: Plan Patient was admitted with srom and labor. She progressed spontaneously and got an epidural. She pushed for two hours and vertex moved to +2 with large caput. OP. discussed options of attempt at vacuum or c/s. Proceeded with primary low transverse c/s for FTD. WAs rop. QBL 362cc. Patient's postop course uncomplicated--tolerated regular diet, voided after removal of her armas cath, pain controlled. She was d/c home on pod 3 with f/u in 6 weeks. d/c h/h 11.0/33.3. Coding Level of Care Code None Diagnoses delivery delivered O82
== END 2025-06-09 15:20 | disposition home or self-care (01) | DRG 788 ==
LOC: OPB 05:28 → 4S1 05:30 → 4E2 19:40